=== PATIENT | female | born 1970 | race Caucasian/White ===

== ENCOUNTER → 2016-08-25 | Outpatient (REF) | payer OTHER | LOC: M LAB REF 12:14 | PROVIDERS: ATTEND Physician Assistant Medical | DX: J02.9 Acute pharyngitis, unspecified (principal) ==

== ENCOUNTER 2024-05-23 16:47 | Observation (INO) | payer OTHER ==
[~2024-05-23] VITALS: Ht 160 cm; Wt 81.5 kg
[2024-05-23] MEDS ORDERED: SEMA2PEN INJ (16:53)
[2024-05-23] MEDS ORDERED: VENL75CA47 PO (16:53)
[2024-05-23] MEDS ORDERED: ONDA-282 PO (17:09)
[2024-05-23] MEDS: ONDANSETRON 4MG 2ML VIAL IV ONE ×2 (17:16→21:17)
[2024-05-23 18:02] LABS: HEMOGLOBIN 14.4 g/dl (12.0-15.5); MEAN CORPUSCULAR HEMOGLOBIN 31.4 pg (27.0-33.0); MEAN CORPUSCULAR HGB CONC 34.3 g/dl (32.0-36.5); MEAN CORPUSCULAR VOLUME 91.7 fl (80.0-96.0); PLATELET COUNT, AUTOMATED 357 10^3/uL (150-450); RED BLOOD COUNT 4.58 10^6/uL (4.00-5.40); WHITE BLOOD COUNT 11.7 10^3/uL (4.0-10.0)
[2024-05-23 18:14] LABS: ALBUMIN 4.7 G/DL (3.2-5.2); ALKALINE PHOSPHATASE 147 U/L (35-104); ALT/SGPT 34 U/L (7.0-40); AST/SGOT 35 U/L (<34); BILIRUBIN,TOTAL 0.7 MG/DL (0.3-1.2); BLOOD UREA NITROGEN 14 MG/DL (9-23); CALCIUM LEVEL 10.8 MG/DL (8.5-10.1); CARBON DIOXIDE LEVEL 23 MMOL/L (20-31); CHLORIDE LEVEL 104 MMOL/L (98-107); CREATININE FOR GFR 0.65 MG/DL (0.55-1.30); GLOMERULAR FILTRATION RATE > 60.0 (>51); GLUCOSE, FASTING 103 MG/DL (60-100); POTASSIUM SERUM 4.2 MMOL/L (3.5-5.1); SODIUM LEVEL 139 MMOL/L (136-145); TOTAL PROTEIN 8.5 G/DL (5.7-8.2)
[2024-05-23] MEDS ORDERED: ISOVUE-370 76% 100ML VIAL As Ordered ONE (19:05)
[2024-05-23 19:13] LABS: LIPASE 56 U/L (12-53)
[2024-05-23] MEDS: METOCLOPRAMIDE INJ 10MG/2ML VIAL IV ONE (19:13)
[2024-05-23] MEDS ORDERED: HOME MED LIST COMPLETE! XX SCH (21:40)
[2024-05-23] MEDS: PANTOPRAZOLE 40MG VIAL IV ONE (22:10)
[2024-05-23] MEDS: PROCHLORPERAZINE 10MG 2ML VIAL IV PRN (22:21)
[2024-05-23] MEDS: LR 1,000 ML IV ONE (22:40)
[2024-05-23 22:45] LABS: ACETONE/KETONE 0.44 MMOL/L (0.02-0.27)
[2024-05-23 23:09] LABS: AMPHETAMINES LEVEL URINE NEGATIVE (NEGATIVE); BARBITURATES URINE NEGATIVE (NEGATIVE); BENZODIAZEPINES URINE NEGATIVE (NEGATIVE); CANNABINOIDS URINE NEGATIVE (NEGATIVE); COCAINE METABOLITE URINE NEGATIVE (NEGATIVE); METHADONE URINE NEGATIVE (NEGATIVE); OPIATES URINE NEGATIVE (NEGATIVE); PHENCYCLIDINE URINE NEGATIVE (NEGATIVE)
[2024-05-24] MEDS ORDERED: ACETAMINOPHEN 325 MG TAB PO PRN (00:35)
[2024-05-24] MEDS ORDERED: MOM 30ML SUSPENSION UDC PO PRN (00:35)
[2024-05-24] MEDS ORDERED: MAALOX 30 ML SUSP *UDC PO PRN (00:35)
[2024-05-24] MEDS: LORazepam 2 MG/ML 1ML VIAL IV ONE (00:47)
[2024-05-24 01:19] VITALS: BP 151/86; TEMP 98.2; O2SAT 99
[2024-05-24] MEDS: LR 1,000 ML IV SCH (02:38)
[2024-05-24] MEDS: ONDANSETRON 4MG 2ML VIAL IV SCH (02:38)
[2024-05-24 04:30] VITALS: BP 130/72; TEMP 98.6; O2SAT 98
[2024-05-24 08:54] LABS: BASO % 0.1 % (0.0-1.0); HEMATOCRIT 38.7 % (36.0-47.0); HEMOGLOBIN 12.9 g/dl (12.0-15.5); LYMPH # 1.3 10^3/uL (1.5-5.0); LYMPH % 15.4 % (24.0-44.0); MEAN CORPUSCULAR HGB CONC 33.3 g/dl (32.0-36.5); MONO # 0.7 10^3/uL (0.0-0.8); NEUTROPHILS # 6.5 10^3/uL (1.5-8.5); NEUTROPHILS % 76.1 % (36.0-66.0); PLATELET COUNT, AUTOMATED 293 10^3/uL (150-450); RED BLOOD COUNT 4.16 10^6/uL (4.00-5.40); WHITE BLOOD COUNT 8.5 10^3/uL (4.0-10.0)
[2024-05-24] MEDS: ENOXAPARIN 40MG/0.4ML SYRINGE (J1650 PER 10MG) SC SCH (09:33)
[2024-05-24] MEDS: PANTOPRAZOLE 40MG VIAL IV SCH (09:33)
[2024-05-24] MEDS: VENLAFAXINE **XR** 75MG CAPSULE PO SCH (09:33)
[2024-05-24] MEDS: SCOPOLAMINE 1MG TRANSDERMAL PATCH TOP SCH (09:34)
[2024-05-24 09:35] LABS: ALBUMIN 3.8 G/DL (3.2-5.2); ALKALINE PHOSPHATASE 121 U/L (35-104); ALT/SGPT 27 U/L (7.0-40); AST/SGOT 22 U/L (<34); BLOOD UREA NITROGEN 13 MG/DL (9-23); CALCIUM LEVEL 9.6 MG/DL (8.5-10.1); CARBON DIOXIDE LEVEL 23 MMOL/L (20-31); CHLORIDE LEVEL 107 MMOL/L (98-107); CREATININE FOR GFR 0.54 MG/DL (0.55-1.30); GLOMERULAR FILTRATION RATE > 60.0 (>51); GLUCOSE, FASTING 106 MG/DL (60-100); POTASSIUM SERUM 3.9 MMOL/L (3.5-5.1); SODIUM LEVEL 139 MMOL/L (136-145); TOTAL PROTEIN 7.2 G/DL (5.7-8.2)
[2024-05-24] MEDS: METOCLOPRAMIDE INJ 10MG/2ML VIAL IV SCH (11:24)
[2024-05-24 11:40] LABS: HEMOGLOBIN A1c 5.5 % (4.0-6.0)
[2024-05-24 12:00] VITALS: BP 148/64; TEMP 97.9; O2SAT 94
[2024-05-24 18:18] LABS: BASO % 0.1 % (0.0-1.0); HEMATOCRIT 37.1 % (36.0-47.0); HEMOGLOBIN 12.8 g/dl (12.0-15.5); LYMPH # 1.8 10^3/uL (1.5-5.0); LYMPH % 18.9 % (24.0-44.0); MEAN CORPUSCULAR HEMOGLOBIN 31.4 pg (27.0-33.0); MEAN CORPUSCULAR HGB CONC 34.5 g/dl (32.0-36.5); MEAN CORPUSCULAR VOLUME 91.2 fl (80.0-96.0); MONO # 0.8 10^3/uL (0.0-0.8); MONO % 8.4 % (2.0-8.0); NEUTROPHILS # 6.7 10^3/uL (1.5-8.5); NEUTROPHILS % 72.3 % (36.0-66.0); PLATELET COUNT, AUTOMATED 286 10^3/uL (150-450); RED BLOOD COUNT 4.07 10^6/uL (4.00-5.40); WHITE BLOOD COUNT 9.3 10^3/uL (4.0-10.0)
[2024-05-24 18:41] LABS: BLOOD UREA NITROGEN 14 MG/DL (9-23); CARBON DIOXIDE LEVEL 25 MMOL/L (20-31); CHLORIDE LEVEL 107 MMOL/L (98-107); CREATININE FOR GFR 0.55 MG/DL (0.55-1.30); GLOMERULAR FILTRATION RATE > 60.0 (>51); GLUCOSE, FASTING 123 MG/DL (60-100); POTASSIUM SERUM 3.6 MMOL/L (3.5-5.1); SODIUM LEVEL 137 MMOL/L (136-145)
[2024-05-24 20:00] VITALS: BP 148/70; TEMP 98.2; O2SAT 96
[2024-05-25 04:19] VITALS: BP 156/76; TEMP 98.1; O2SAT 97
[2024-05-25] MEDS: LR 1,000 ML IV SCH (11:12)
[2024-05-25 12:00] VITALS: BP 146/78; TEMP 98.3; O2SAT 98
[2024-05-25 20:00] VITALS: BP 144/80; TEMP 97.1; O2SAT 100
[2024-05-26 04:00] VITALS: BP 152/86; TEMP 97.7; O2SAT 95
[2024-05-26 05:45] LABS: BLOOD UREA NITROGEN 8 MG/DL (9-23); CALCIUM LEVEL 8.9 MG/DL (8.5-10.1); CARBON DIOXIDE LEVEL 28 MMOL/L (20-31); CHLORIDE LEVEL 97 MMOL/L (98-107); GLOMERULAR FILTRATION RATE > 60.0 (>51); GLUCOSE, FASTING 106 MG/DL (60-100); POTASSIUM SERUM 3.9 MMOL/L (3.5-5.1); SODIUM LEVEL 130 MMOL/L (136-145)
[2024-05-26] MEDS ORDERED: ONDA-83 PO (11:10)
[2024-05-26] MEDS ORDERED: TRAN1DIS4 TOP (11:10)
[2024-05-26 12:00] VITALS: BP 156/91; TEMP 98.1; O2SAT 97
== END 2024-05-26 13:30 | disposition home or self-care (01) ==
LOC: M ED 16:47 → M ED INP 16:48 → M MSPAV 05-24 01:14
PROVIDERS: ADMIT Student in an Organized Health Care Education/Training Program; ATTEND Student in an Organized Health Care Education/Training Program
DX: A08.4 Viral intestinal infection, unspecified (principal); R11.2 Nausea with vomiting, unspecified; D72.829 Elevated white blood cell count, unspecified; F41.9 Anxiety disorder, unspecified; E66.9 Obesity, unspecified; Z79.899 Other long term (current) drug therapy; Z98.84 Bariatric surgery status
CPT/HCPCS: 36415; 71045; 74177; 80048; 80053; 80307; 81001; 82010; 83036; 83690; 83735; 85025; 85027; 93005; 96361; 96374; 96375; 96376; 99285; J0780; J1650; J2060; J2405; J2470; J2765; Q9967

== ENCOUNTER → 2025-05-26 | Outpatient (CLI) | payer OTHER ==
[~2025-05-26] MED LIST: ONDA-282 PO; ONDA-83 PO; SEMA2PEN INJ; TRAN1DIS4 TOP; VENL75CA47 PO
== END ==
LOC: M WHC 10:29
PROVIDERS: ATTEND Nurse Practitioner Family
DX: Z78.0 Asymptomatic menopausal state (principal)

== ENCOUNTER → 2025-07-13 | Outpatient (CLI) | payer OTHER ==
[2025-07-13 11:23] LABS: BASO # 0.0 10^3/uL (0.0-0.2); BASO % 0.5 % (0.0-1.0); EOS # 0.1 10^3/uL (0.0-0.5); EOS % 1.7 % (0.0-3.0); LYMPH # 1.2 10^3/uL (1.5-5.0); LYMPH % 28.1 % (24.0-44.0); MONO # 0.6 10^3/uL (0.0-0.8); MONO % 14.5 % (2.0-8.0); NEUTROPHILS # 2.3 10^3/uL (1.5-8.5); NEUTROPHILS % 54.7 % (36.0-66.0); PLATELET COUNT, AUTOMATED 296 10^3/uL (150-450)
[2025-07-13 12:07] LABS: ALT/SGPT 27 U/L (7.0-40); AST/SGOT 34 U/L (<34); CALCIUM LEVEL 8.7 MG/DL (8.5-10.1); CARBON DIOXIDE LEVEL 28 MMOL/L (20-31); CHLORIDE LEVEL 102 MMOL/L (98-107); CHOLESTEROL LEVEL 203 MG/DL (<200); CHOLESTEROL RISK RATIO 2.70 (<5); CREATININE FOR GFR 0.66 MG/DL (0.55-1.30); GLOMERULAR FILTRATION RATE > 90.0 (>51); LDL CHOLESTEROL 105.7 MG/DL (<100); NON-HDL-C 127.9 MG/DL; POTASSIUM SERUM 4.3 MMOL/L (3.5-5.1); SODIUM LEVEL 137 MMOL/L (136-145); TRIGLYCERIDES LEVEL 111 MG/DL (<150)
[2025-07-13 12:11] LABS: TOTAL 25(OH) VITAMIN D 29.5 NG/ML (20.0-100.0)
== END ==
LOC: M LAB 11:03
PROVIDERS: ATTEND Nurse Practitioner Family
DX: Z00.00 Encounter for general adult medical examination without abnormal findings (principal); E78.2 Mixed hyperlipidemia; F41.8 Other specified anxiety disorders; E66.9 Obesity, unspecified; E55.9 Vitamin D deficiency, unspecified